=== PATIENT | female | born 1945 | race Two or more races ===

== ENCOUNTER 2017-06-24 20:41 | Inpatient (IN) | payer OTHER ==
[~2017-06-24] VITALS: Ht 152.4 cm; Wt 68.2 kg
[2017-06-24] MEDS ORDERED: SODIUM CHLORIDE 0.9% 1,000 ML IV ONE (20:59)
[2017-06-24 21:24] LABS: Hematocrit 28.2 % (36.0-46.0); Mean Corpuscular Hemoglobin 23.3 pg (28.0-32.0); Mean Corpuscular Hgb Conc. 31.8 g/dL (32.0-36.0); Mean Corpuscular Volume 73.3 fL (80.0-100.0); Platelet Count (auto) 168 10^3/uL (140-450); Red Blood Cells 3.85 10^6/uL (4.0-5.20); White Blood Cell 14.6 10^3/uL (4.4-10.8)
[2017-06-24 21:35] LABS: Basophils % (manual) 0 (0.0-2.0); Eosinophils % (manual) 0 (0-7); Metamyelocytes % 0; Red Cell Distribution Width 21.9 % (11.8-14.3)
[2017-06-24 21:36] LABS: Blast Cells 0; Myelocytes % 0; Promyelocytes % 0; Reactive Lymphocytes 0
[2017-06-24 21:43] LABS: BUN/Creatinine Ratio 17.7; Bilirubin, Total 0.8 mg/dL (0.2-1.0); Calcium 9.3 mg/dL (8.5-10.1); Potassium 3.9 mmol/L (3.5-5.1); Total Protein 8.2 g/dL (6.4-8.2)
[2017-06-24 22:33] LABS: Band Neutrophils % (manual) 41; Lymphocytes % (manual) 4 (10.0-50.0); Monocytes % (manual) 5 (0-12)
[2017-06-25 01:35] LABS: INR 1.05 (0.9-1.15); Partial Thromboplastin Time 29.1 sec (22.64-33.71); Prothrombin Time 11.5 sec (9.37-12.3)
[2017-06-25] MEDS ORDERED: ASPirin 325 MG TAB PO ONE (03:30)
[2017-06-25] MEDS ORDERED: MORPHINE SULFATE 4 MG/ML SYR/VIAL IV PRN (06:00)
[2017-06-25] MEDS ORDERED: NITROGLYCERIN 0.4 MG SL TAB SL PRN (06:00)
[2017-06-25 06:28] LABS: Alcohol, Urine < 3.0 mg/dL (0-5); Amphetamine Screen, Urine NEGATIVE (NEGATIVE); Barbiturate Scree,Urine NEGATIVE (NEGATIVE); Benzodiazephine Screen, Urine POSITIVE (NEGATIVE); Cannabinoid Screen, Urine NEGATIVE (NEGATIVE); Cocaine Screen, Urine NEGATIVE (NEGATIVE); Opiate Scree,Urine POSITIVE (NEGATIVE); Phencyclidine Screen, Urine NEGATIVE (NEGATIVE)
[2017-06-25 07:02] LABS: Hematocrit 24.7 % (36.0-46.0); Hemoglobin 7.8 g/dL (12.2-16.2)
[2017-06-25 07:04] LABS: Mean Corpuscular Hemoglobin 23.4 pg (28.0-32.0); Mean Corpuscular Hgb Conc. 31.5 g/dL (32.0-36.0); Mean Corpuscular Volume 74.2 fL (80.0-100.0); Platelet Count (auto) 174 10^3/uL (140-450); Red Blood Cells 3.33 10^6/uL (4.0-5.20); White Blood Cell 14.5 10^3/uL (4.4-10.8)
[2017-06-25 07:07] LABS: Red Cell Distribution Width 21.9 % (11.8-14.3)
[2017-06-25 07:08] LABS: Basophils % (manual) 0 (0.0-2.0); Blast Cells 0; Eosinophils % (manual) 0 (0-7); Metamyelocytes % 0; Myelocytes % 0; Promyelocytes % 0; Reactive Lymphocytes 0
[2017-06-25 07:36] LABS: BUN/Creatinine Ratio 22.2; Calcium 9.4 mg/dL (8.5-10.1); Potassium 3.8 mmol/L (3.5-5.1)
[2017-06-25 07:38] LABS: Urine Bacteria NONE SEEN /hpf (None Seen); Urine Blood 2+ /uL (Negative); Urine Specific Gravity 1.016 (1.001-1.035); Urine WBC 1 /hpf (0 - 5)
[2017-06-25 07:51] LABS: Band Neutrophils % (manual) 2; Lymphocytes % (manual) 6 (10.0-50.0); Monocytes % (manual) 3 (0-12)
[2017-06-25 07:56] LABS: Cholesterol 107 mg/dL (< 200); HDL Cholesterol 14 mg/dL (40-59); LDL Cholesterol 45 mg/dL (< 100); Triglycerides 217 mg/dL (< 150)
[2017-06-25] MEDS: LEVOTHYROXINE SODIUM 50 MCG TAB PO SCH (08:10)
[2017-06-25] MEDS: cefTRIAXone 1GM/10ml IVPUSH 10 ML IV SCH (08:28)
[2017-06-25] MEDS ORDERED: SODIUM CHLORIDE 0.9% 1,000 ML IV SCH (08:45)
[2017-06-25] MEDS ORDERED: hydrALAZINE HCL 25 MG TAB PO PRN (08:45)
[2017-06-25] MEDS ORDERED: LEVOFLOXACIN 750MG 150 ML IV SCH (10:00)
[2017-06-25 10:22] LABS: Hemoglobin 8.1 g/dL (12.2-16.2); Mean Corpuscular Hemoglobin 23.3 pg (28.0-32.0); Mean Corpuscular Volume 75.1 fL (80.0-100.0); Platelet Count (auto) 178 10^3/uL (140-450); Red Blood Cells 3.46 10^6/uL (4.0-5.20); White Blood Cell 15.3 10^3/uL (4.4-10.8)
[2017-06-25] MEDS: FUROSEMIDE 40 MG/4 ML VIAL IV SCH (10:24)
[2017-06-25] MEDS: LISINOPRIL 5 MG TAB PO SCH (10:24)
[2017-06-25] MEDS: METOPROLOL TARTRATE 25 MG TAB PO SCH ×2 (10:24→21:07)
[2017-06-25] MEDS: ASPirin-EC 81 mg tab PO SCH (10:24)
[2017-06-25 10:26] LABS: Red Cell Distribution Width 22.2 % (11.8-14.3)
[2017-06-25 10:28] LABS: Band Neutrophils % (manual) 0; Basophils % (manual) 0 (0.0-2.0); Blast Cells 0; Eosinophils % (manual) 0 (0-7); Metamyelocytes % 0; Myelocytes % 0; Promyelocytes % 0; Reactive Lymphocytes 0
[2017-06-25] MEDS: HALOPERIDOL LACTATE 5 MG/ML INJ VIAL IM PRN (11:26)
[2017-06-25] MEDS: diphenhdrAMINE HCL 50 MG/1 ML VL IV PRN ×2 (12:07→22:56)
[2017-06-25 13:31] LABS: Lymphocytes % (manual) 8 (10.0-50.0); Monocytes % (manual) 2 (0-12)
[2017-06-25] MEDS ORDERED: ATORVASTATIN 20 MG TAB PO SCH (22:00)
[2017-06-26] MEDS: HALOPERIDOL LACTATE 5 MG/ML INJ VIAL IM PRN ×2 (01:00→12:36)
[2017-06-26] MEDS: diphenhdrAMINE HCL 50 MG/1 ML VL IV PRN ×2 (05:51→12:36)
[2017-06-26 06:34] LABS: Eosinophils # (auto) 0.1 uL; Eosinophils % (auto) 0.7 % (0.0-7.0); Monocytes # (auto) 0.8 uL
[2017-06-26 06:38] LABS: Basophils # (auto) 0 uL; Basophils % (auto) 0.3 % (0.0-2.0); Hematocrit 26.4 % (36.0-46.0); Hemoglobin 8.3 g/dL (12.2-16.2); Lymphocytes % (auto) 6.3 % (10.0-50.0); Mean Corpuscular Hemoglobin 23.1 pg (28.0-32.0); Mean Corpuscular Hgb Conc. 31.3 g/dL (32.0-36.0); Mean Corpuscular Volume 73.8 fL (80.0-100.0); Monocytes % (auto) 5.3 % (0.0-12.0); Neutrophils # (auto) 13.8 uL; Neutrophils % (auto) 87.4 % (37.0-80.0); Nucleated Red Blood Cells % 0.1 %; Platelet Count (auto) 191 10^3/uL (140-450); Red Blood Cells 3.58 10^6/uL (4.0-5.20); White Blood Cell 15.8 10^3/uL (4.4-10.8)
[2017-06-26 06:43] LABS: Red Cell Distribution Width 22.1 % (11.8-14.3)
[2017-06-26 07:05] LABS: Calcium 9.6 mg/dL (8.5-10.1); Magnesium 2.1 mg/dL (1.6-2.6); Potassium 3.1 mmol/L (3.5-5.1)
[2017-06-26] MEDS: LEVOTHYROXINE SODIUM 50 MCG TAB PO SCH (07:05)
[2017-06-26 07:07] LABS: BUN/Creatinine Ratio 23.9
[2017-06-26] MEDS: cefTRIAXone 1GM/10ml IVPUSH 10 ML IV SCH (09:48)
[2017-06-26] MEDS: FUROSEMIDE 40 MG/4 ML VIAL IV SCH (09:48)
[2017-06-26] MEDS: METOPROLOL TARTRATE 25 MG TAB PO SCH (09:48)
[2017-06-26] MEDS: LISINOPRIL 5 MG TAB PO SCH (09:48)
[2017-06-26] MEDS: ASPirin-EC 81 mg tab PO SCH (09:48)
[2017-06-26 09:52] LABS: Folate (Folic Acid) 8.02 ng/mL (5.38-24)
[2017-06-26] MEDS ORDERED: POTASSIUM CHL 20 Meq TABLET PO ONE (14:00)
[2017-06-26 15:00] VITALS: BP 123/73
[2017-06-26] MEDS ORDERED: ALPR1TAB7 PO (15:24)
[2017-06-26] MEDS ORDERED: BUPR100T14 PO (15:24)
[2017-06-26] MEDS ORDERED: LOSA100T27 PO (15:24)
[2017-06-26] MEDS ORDERED: FOLI1TAB6 PO (15:24)
[2017-06-26] MEDS ORDERED: LEVO125T7 PO (15:24)
[2017-06-26] MEDS ORDERED: HYDR-531 PO (15:24)
[2017-06-26] MEDS ORDERED: ATE50T PO (15:24)
[2017-06-26] MEDS ORDERED: SIMV-8 PO (15:24)
[2017-06-26 16:48] VITALS: BP 123/73
== END 2017-06-26 17:45 | disposition home or self-care (01) | DRG 917 ==
LOC: EDBD 20:41 → ER 20:41 → TELE 20:42 → TELE-WESTW 06-26 14:58
PROVIDERS: ADMIT Nurse Practitioner Family; ATTEND Family Medicine
DX: T40.601A Poisoning by unspecified narcotics, accidental (unintentional), initial encounter (principal); G93.41 Metabolic encephalopathy; J80 Acute respiratory distress syndrome; R65.10 Systemic inflammatory response syndrome (SIRS) of non-infectious origin without acute organ dysfunction; D64.9 Anemia, unspecified; E11.9 Type 2 diabetes mellitus without complications; E03.9 Hypothyroidism, unspecified; E78.00 Pure hypercholesterolemia, unspecified; F03.90 Unspecified dementia, unspecified severity, without behavioral disturbance, psychotic disturbance, mood disturbance, and anxiety; E78.5 Hyperlipidemia, unspecified; T42.4X1A Poisoning by benzodiazepines, accidental (unintentional), initial encounter; K21.9 Gastro-esophageal reflux disease without esophagitis; G47.00 Insomnia, unspecified; G40.909 Epilepsy, unspecified, not intractable, without status epilepticus; M19.90 Unspecified osteoarthritis, unspecified site; R74.8 Abnormal levels of other serum enzymes; I10 Essential (primary) hypertension; Z90.49 Acquired absence of other specified parts of digestive tract; V89.2XXA Person injured in unspecified motor-vehicle accident, traffic, initial encounter; Z87.891 Personal history of nicotine dependence
CPT/HCPCS: 36415; 51702; 70450; 71045; 74176; 80048; 80053; 80061; 80307; 80320; 81001; 82607; 82746; 83605; 83735; 83880; 84443; 84484; 85007; 85025; 85027; 85610; 85730; 87040; 87086; 93005; 93306; 93886; 96360; 96361; A4565; J1956